=== PATIENT | male | born 1985 | race Caucasian/White ===

== ENCOUNTER 2017-04-27 08:23 | Day surgery (SDC) | payer OTHER ==
[2017-04-23 15:51] VITALS: BMI 26.9
[~2017-04-27 08:23] MED LIST: LEVOFLOXACIN 500 MG PREMIX BAG IVPB ONE
[2017-04-27] MEDS ORDERED: LEVOFLOXACIN 500 MG IVPB 500 MG/100 ML BAG IVPB ONE (09:24)
[2017-04-27] MEDS ORDERED: MIDAZOLAM HCL 2 MG/2 ML SINGLE DOSE VIAL ONE (09:25)
[2017-04-27] MEDS ORDERED: PROPOFOL 20 ML ONE ×2 (09:25)
[2017-04-27] MEDS ORDERED: LEVOFLOXACIN 500 MG PREMIX BAG IVPB ONE (09:36)
[2017-04-27] MEDS ORDERED: DEXAMETHASONE SOD PHOSPHATE 4 MG/1 ML VIAL ONE (09:52)
[2017-04-27] MEDS ORDERED: ONDANSETRON 4 MG/2 ML VIAL IVPUSH PRN (10:14)
[2017-04-27] MEDS ORDERED: oxyCODONE HCL 5 MG TABLET PO PRN (10:14)
[2017-04-27] MEDS ORDERED: LACTATED RINGERS SOLUTION 1,000 ML IV SCH (10:15)
[2017-04-27 11:54] VITALS: TEMP 97.8
--- NOTE | 2017-04-27 12:09 | OP ---
Operative Note - Note: Operative Date: 04/27/17 Pre-Operative Diagnosis: right ureterocele with one centimeter right ureteral stone Operation: cystoscopy/right retrograde pyelogram/right ureteroscopic laser lithotripsy/right ureteral stent placement Findings: one cm right distal ureteral stone Post-Operative Diagnosis: Same as Pre-op Surgeon: Tomas Nelson Anesthesia: General Specimens Removed: stone fragments Drains & Tubes with Location: 6 fr/24 cm right ureteral stent Operative Report Dictated: Yes
[2017-04-27] MEDS ORDERED: oxyCODONE HCL 5 MG TABLET ONE (12:15)
[2017-04-27] MEDS ORDERED: ONDANSETRON 4 MG/2 ML VIAL ONE (13:17)
[2017-04-27] MEDS ORDERED: IBUPROFEN 600 MG TABLET (FP) PO ONE (13:49)
[2017-04-27 15:04] VITALS: BP 137/78; PULSE 67
--- NOTE | 2017-04-27 18:57 | OP ---
DATE OF OPERATION: 04/27/2017 PREOPERATIVE DIAGNOSES: Right ureterocele with 1-cm distal right ureteral stone. POSTOPERATIVE DIAGNOSES: Right ureterocele with 1-cm distal right ureteral stone. PROCEDURE: Cystoscopy, right retrograde pyelogram, right ureteroscopic laser lithotripsy, right ureteral stone basketing, and right ureteral stent placement. ATTENDING: Reina Mccain MD ANESTHESIA: General. DESCRIPTION OF OPERATION: Patient was brought in the operating room, placed in a supine position on the operating room table. The patient was then administered general anesthesia and placed in the dorsal lithotomy position. Patient was prepped and draped in the usual sterile manner. Cystoscopy was performed, and the mass involving the right ureteral orifice was noted. This is consistent with an ureterocele seen on CAT scan. Difficulty was encountered in finding the ureteral orifice on the right. The right ureteral orifice was eventually intubated and a right stent placed proximally. A retrograde pyelogram was then performed which showed a large filling defect in the right ureterocele with [id number] right hydroureteronephrosis. At this point, the cystoscope was removed, and the wire was left in place. Ureteroscopy was performed. Under direct vision, a holmium laser fiber was utilized, and laser lithotripsy of the distal ureteral stone was performed. Excellent fragmentation of the stone was noted. All stone fragments were basketed and removed and sent to Pathology for evaluation. No complications were noted. A right ureteral stent was left in place, measuring 6-Azeri 24 cm. The Seldinger technique was utilized in placing the stent. It must be noted that there was no incision made to the right ureteral orifice. There is a possibility with the dilation caused by the 1-cm stone that the patient will suffer right ureteral reflux. This possibility had been told to the patient. The patient will be left with a stent and followed up in the office setting. The disposition of the patient is to recovery room. REINA MCCAIN M.D. [id number]
--- NOTE | 2017-04-28 13:38 | PATH ---
Surgical Pathology Report Patient Name: МАРИНА NOGUEIRA [facility]. Rec. #: [id number] /Age/Gender: 1985 (Age: 32) / M Account: [id number] Location: U SURGICAL Taken: 04/27/2017 Received: 04/27/2017 Reported: 04/28/2017 Physicians: Tomas Nelson Specimen(s) Received RIGHT URETERAL STONE Clinical History Right ureteral stone Final Diagnosis URETERAL STONE, RIGHT, REMOVAL: URETEROLITHIASIS. MACROSCOPIC DIAGNOSIS. SEE SEPARATE CHEMICAL ANALYSIS REPORT. Electronically Signed Yue Cintron M.D. Gross Description Received fresh labeled "right ureteral stone," is a 1.8 x 1.0 x 0.4 cm aggregate of boyd-brown, fragmented calculi. The specimen is sent for chemical analysis. DL/04/27/2017 saudi/04/27/2017
[2017-05-05 10:12] LABS: CA OXALATE MONOHYDR. 25 % (.); URIC ACID 70 % (.); WEIGHT 466.7 mg (.)
== END 2017-04-27 15:04 | disposition home or self-care (01) ==
LOC: JASU-SURG 08:23
PROVIDERS: ATTEND Urology
PROC: 0TF68ZZ Fragmentation in Right Ureter, Via Natural or Artificial Opening Endoscopic (ICD-10-PCS; principal; 2017-04-27 10:00)
PROC: 0T768DZ Dilation of Right Ureter with Intraluminal Device, Via Natural or Artificial Opening Endoscopic (ICD-10-PCS; 2017-04-27 10:00)
PROC: BT1DZZZ Fluoroscopy of Right Kidney, Ureter and Bladder (ICD-10-PCS; 2017-04-27 10:00)
DX: N20.1 Calculus of ureter (principal); N28.89 Other specified disorders of kidney and ureter
CPT/HCPCS: 36415; 76000-TC; 82360; 94760

== ENCOUNTER 2017-05-18 10:31 | Day surgery (SDC) | payer OTHER ==
[2017-05-14 15:10] VITALS: BMI 26.9
[2017-05-18] MEDS ORDERED: MIDAZOLAM HCL 2 MG/2 ML SINGLE DOSE VIAL ONE ×2 (13:32→13:36)
--- NOTE | 2017-05-18 14:05 | OP ---
Operative Note - Note: Operative Date: 05/18/17 Pre-Operative Diagnosis: Right flank pain, kidney stone, JJ stent Operation: Right ESWL Findings: Right lower pole 8 mm stone Post-Operative Diagnosis: Same as Pre-op Surgeon: Tomas Nelson Anesthesia: Fractional Drains & Tubes with Location: R JJ stent
[2017-05-18 14:12] VITALS: TEMP 97
[2017-05-18 14:58] VITALS: BP 125/81; PULSE 74
--- NOTE | 2017-05-18 20:30 | OP ---
DATE OF OPERATION: 05/18/2017 PREOPERATIVE DIAGNOSIS: Right renal stone. POSTOPERATIVE DIAGNOSIS: Right renal stone. PROCEDURE: Right extracorporeal shock wave lithotripsy. ATTENDING: Reina Mccain MD ANESTHESIA: General. DESCRIPTION OF OPERATION: Patient was brought in the operating room, placed in supine position, laid on the operating room table. Ultrasonography and fluoroscopy were performed. An 8-mm right lower-pole stone was identified. At this point, the anesthesia was administered to the patient, and the patient was given preoperative antibiotics. Extracorporeal shock wave lithotripsy was then started; 2500 impulses at 20 joules of power were administered to the stone. Excellent fragmentation of the stone was noted. There were no complications noted. The patient tolerated the procedure very well. The disposition of the patient was to the recovery room. REINA MCCAIN M.D. [id number]
== END 2017-05-18 14:55 | disposition home or self-care (01) ==
LOC: JASU-SURG 10:31
PROVIDERS: ATTEND Urology
PROC: 0TF3XZZ Fragmentation in Right Kidney Pelvis, External Approach (ICD-10-PCS; principal; 2017-05-18 11:45)
DX: N20.0 Calculus of kidney (principal)

== ENCOUNTER 2018-02-04 04:24 | Observation (INO) | payer OTHER ==
--- NOTE | 2018-02-04 04:35 | PDOC ---
History of Present Illness <Hue Joaquin - Last Filed: 02/04/18 07:00> - History of Present Illness Initial Comments: 02/04/18 04:34 Mr. Sahu is a 32 yo male w/ pmh of multiple instances of nephrolithiasis ( one requiring intervention for 7mm stone) who presents for evaluation of left sided abdominal/back pain he reports woke him from sleepin directly before presentation. Patient relates it currently "hurts everywhere" however localizes to the left side. He says this feels like his prior kidney stones. Endorses nausea and vomiting at home before presentation that consisted of food he had eaten earlier. He took Azo at home to help with the pain. The patient denies chest pain, shortness of breath, headache and dizziness. Denies fever, chills, diarrhea and constipation. Denies dysuria, frequency, urgency and hematuria. Allergies: NKDA <Herve Acosta - Last Filed: 02/04/18 07:06> - General Stated Complaint: PAIN LOWER BSCK Time Seen by Provider: 02/04/18 04:34 Past History <Hue Joaquin Gokulyordy - Last Filed: 02/04/18 07:00> - Past Medical History Anemia: No Asthma: No Cancer: No Cardiac Disorders: No CVA: No COPD: No CHF: No Dementia: No Diabetes: No GI Disorders: No Disorders: Yes (KIDNEY STONES) HTN: No Hypercholesterolemia: No Kidney Stones: Yes Liver Disease: No Seizures: No Thyroid Disease: No - Suicide/Smoking/Psychosocial Hx Smoking Status: No Smoking History: Never smoked Have you smoked in the past 12 months: No Number of Cigarettes Smoked Daily: 0 Hx Alcohol Use: No Drug/Substance Use Hx: No Substance Use Type: None <Herve Acosta - Last Filed: 02/04/18 07:06> - Past Medical History Allergies/Adverse Reactions: Allergies Allergy/AdvReac Type Severity Reaction Status Date / Time No Known Allergies Allergy Verified 02/04/18 06:17 Home Medications: Ambulatory Orders NK [No Known Home Medication] 04/23/17 Review of Systems - Review of Systems Comments:: 02/04/18 04:34 GENERAL/CONSTITUTIONAL: No fever or chills. No weakness. HEAD, EYES, EARS, NOSE AND THROAT: No change in vision. No ear pain or discharge. No sore throat. CARDIOVASCULAR: No chest pain or shortness of breath RESPIRATORY: No cough, wheezing, or hemoptysis. GASTROINTESTINAL: +LLQ pain w/ nausea/vomiting as described. No diarrhea or constipation. GENITOURINARY: No dysuria, frequency, or change in urination. MUSCULOSKELETAL: +Left lower back pain. No joint or muscle swelling or pain. No neck pain. SKIN: No rash NEUROLOGIC: No headache, vertigo, loss of consciousness, or change in strength/ sensation. ENDOCRINE: No increased thirst. No abnormal weight change HEMATOLOGIC/LYMPHATIC: No anemia, easy bleeding, or history of blood clots. ALLERGIC/IMMUNOLOGIC: No hives or skin allergy. <Herve Acosta - Last Filed: 02/04/18 07:06> *Physical Exam - Vital Signs Last Vital Signs Temp Pulse Resp BP Pulse Ox 98.4 F 66 18 120/71 99 02/04/18 06:49 02/04/18 06:49 02/04/18 06:49 02/04/18 06:49 02/04/18 06:49 <Hue Joaquin - Last Filed: 02/04/18 07:00> - Physical Exam Comments: 02/04/18 04:34 GENERAL: +Patient appears acutely in pain. Awake, alert, and fully oriented HEAD: No signs of trauma, normocephalic, atraumatic EYES: PERRLA, EOMI, sclera anicteric, conjunctiva clear ENT: Auricles normal inspection, hearing grossly normal, nares patent, oropharynx clear without exudates. Moist mucosa NECK: Normal ROM, supple, no lymphadenopathy, JVD, or masses LUNGS: No distress, speaks full sentences, clear to auscultation bilaterally HEART: Regular rate and rhythm, normal S1 and S2, no murmurs, rubs or gallops, peripheral pulses normal and equal bilaterally. ABDOMEN: +LLQ/LUQ TTP. Left CVA TTP. Soft, normoactive bowel sounds. No guarding , no rebound. No masses EXTREMITIES: Normal inspection, Normal range of motion, no edema. No clubbing or cyanosis. NEUROLOGICAL: Cranial nerves II through XII grossly intact. Normal speech, normal gait, no focal sensorimotor deficits SKIN: Warm, Dry, normal turgor, no rashes or lesions noted. <Herev Acosta - Last Filed: 02/04/18 07:06> ED Treatment Course - LABORATORY CBC & Chemistry Diagram: 02/04/18 04:50 02/04/18 04:50 - ADDITIONAL ORDERS Additional order review: Laboratory Results 02/04/18 02/04/18 02/04/18 06:02 04:50 04:50 WBC 6.6 RBC 5.71 H Hgb 15.2 Hct 47.5 MCV 83.2 MCH 26.7 MCHC 32.0 RDW 13.1 Plt Count 191 MPV 7.6 Absolute Neuts (auto) 3.9 Neutrophils % 58.7 Lymphocytes % 30.9 D Monocytes % 8.8 Eosinophils % 1.2 D Basophils % 0.4 Nucleated RBC % 0 Sodium 138 Potassium 3.3 L Chloride 102 Carbon Dioxide 26 Anion Gap 10 BUN 15 Creatinine 1.1 Creat Clearance w eGFR > 60 Random Glucose 103 Calcium 8.6 Total Bilirubin 0.4 AST 16 ALT 30 Alkaline Phosphatase 77 Total Protein 7.6 Albumin 4.0 Urine Color Zayra Urine Appearance Clear Urine pH 5.0 Ur Specific [place] 1.021 Urine Protein Negative Urine Glucose (UA) Negative Urine Ketones Negative Urine Blood 3+ H Urine Nitrite Positive Urine Bilirubin Negative Urine Urobilinogen 4.0 e.u/dl Ur Leukocyte Esterase Negative Urine WBC (Auto) 1 Urine RBC (Auto) 113 Urine Mucus Rare 02/04/18 04:50 RBC 5.71 H MCV 83.2 MCHC 32.0 RDW 13.1 MPV 7.6 Neutrophils % 58.7 Lymphocytes % 30.9 D Monocytes % 8.8 Eosinophils % 1.2 D Basophils % 0.4 - Medications Given in the ED: ED Medications Discontinued Medications Generic Name Dose Route Start Last Admin Trade Name Freq PRN Reason Stop Dose Admin Sodium Chloride 1,000 mls @ 1,000 mls/hr 02/04/18 04:39 02/04/18 05:17 Normal Saline - IV 02/04/18 05:38 1,000 mls/hr ASDIR STA Administration Ketorolac Tromethamine 30 mg 02/04/18 04:39 02/04/18 05:18 Toradol Injection - IVPUSH 02/04/18 04:40 30 mg ONCE ONE Administration Morphine Sulfate 4 mg 02/04/18 04:39 02/04/18 05:17 Morphine Injection - IVPUSH 02/04/18 04:40 4 mg ONCE ONE Administration Ondansetron HCl 4 mg 02/04/18 04:54 02/04/18 05:18 Zofran Injection IVPUSH 02/04/18 04:55 4 mg ONCE ONE Administration Potassium Chloride 40 meq 02/04/18 05:58 02/04/18 06:14 K-Dur - PO 02/04/18 05:59 40 meq ONCE ONE Administration <Hue Joaquin - Last Filed: 02/04/18 07:00> - LABORATORY CBC & Chemistry Diagram: 02/04/18 04:50 02/04/18 04:50 <Herve Acosta - Last Filed: 02/04/18 07:06> Medical Decision Making - Medical Decision Making 02/04/18 04:57 Mr. Sahu is a 32 yo male w/ pmh as described who presents for evaluation of symptoms c/w nephrolithiasis / ureterolithiasis. Workup started with basic labs for evaluation and pain medication. CT spiral ordered for further evaluation. 02/04/18 05:25 Renal calculi w/ mild left sided hydronephrosis noted on bedside US. 02/04/18 07:05 Patient signed out to Dr. Lindsey for further care. <Herve Acosta - Last Filed: 02/04/18 07:06> *DC/Admit/Observation/Transfer - Discharge Dispostion Decision to Admit order: Yes Decision to Admit order Date/Time: Decision to Admit Order Category Date Time Status Decision to Admit to Hospital Routine Admission 02/04/18 06:57 Ordered <Hue Joaquin - Last Filed: 02/04/18 07:00> - Discharge Dispostion Decision to Admit order: Yes <Herve Acosta - Last Filed: 02/04/18 07:06> Diagnosis at time of Disposition: Renal calculus, left - Discharge Dispostion Condition at time of disposition: Fair
[2018-02-04] MEDS ORDERED: KETOROLAC TROMETHAMINE 30 MG/1 ML VIAL IVPUSH ONE (04:39)
[2018-02-04] MEDS ORDERED: morphine CARPU-JECT 4 MG/1 ML DISP.SYRIN IVPUSH ONE (04:39)
[2018-02-04] MEDS ORDERED: SODIUM CHLORIDE 1,000 ML IV STA (04:39)
[2018-02-04 04:49] VITALS: BMI 29.0
[2018-02-04] MEDS ORDERED: ONDANSETRON 4 MG/2 ML VIAL IVPUSH ONE (04:54)
[2018-02-04] MEDS ORDERED: morphine SULFATE 4 MG/ML VIAL ONE (05:02)
[2018-02-04] MEDS ORDERED: KETOROLAC TROMETHAMINE 30 MG/1 ML VIAL ONE (05:03)
[2018-02-04 05:04] LABS: BASO % 0.4 % (0-2.0); EOS % 1.2 % (0-4.5); HEMATOCRIT 47.5 % (35.4-49); HEMOGLOBIN 15.2 GM/dL (11.7-16.9); LYMPH % 30.9 % (8-40); MCH 26.7 pg (25.7-33.7); MEAN CELL VOLUME 83.2 fl (80-96); MEAN PLT VOLUME 7.6 fl (7.5-11.1); MONO % 8.8 % (3.8-10.2); NEUT % 58.7 % (42.8-82.8); PLATELET COUNT 191 K/MM3 (134-434); RBC 5.71 M/mm3 (4.00-5.60); RDW 13.1 % (11.9-15.9); WHITE BLOOD COUNT 6.6 K/mm3 (4.0-10.0)
[2018-02-04] MEDS ORDERED: ONDANSETRON 4 MG/2 ML VIAL ONE (05:04)
--- NOTE | 2018-02-04 05:15 | PDOC ---
Attending Attestation - Resident Resident Name: HarleyteddydeniseKalebHerve - ED Attending Attestation I have performed the following: I have examined & evaluated the patient, The case was reviewed & discussed with the resident, I agree w/resident's findings & plan - HPI HPI: 02/04/18 06:00 Mr. Sahu is a 32 yo male w/ pmh of multiple instances of kidney stones (one requiring intervention for 7mm stone) presenting with acute onset of left flank and abdominal pain, n/v that woke him up from sleep this morning. No f/c. Feels similar to prior stones. - Physicial Exam PE: 02/04/18 06:00 Mild distress 2/2 pain, colicky, PERRL, EOMI, MMM, nl conjunctiva, anicteric; neck supple. lungs clear, RRR, abdomen soft +left flank and LLQ tenderness. HERNÁNDEZ x4, no focal neuro deficits. No peripheral edema. normal color for ethnicity, WWP. - Medical Decision Making 02/04/18 06:00 32 YOM with h/o multiple kidney stones (once requiring lithotripsy) presenting with acute onset left flank and AP. DDx abdominal pain: Renal colic, biliary colic, metabolic/electrolyte derangements. GERD, PUD, esophageal spasm, pancreatitis, hepatitis, constipation , colitis, gastroenteritis, cholecystitis, UTI, pyelonephritis, ileus, SBO, medication side effect, hernia, appendicitis, diverticulitis Vital signs reviewed, wnl. Prior notes reviewed, including admissions, discharges and consultations. laboratory results and imaging reviewed, basic labs and lytes wnl, mild hypoK, given PO tab for repletion. UA_ positive for nitrites and copious blood, possibly an infection, f/u urine cultures. ED course: no acute events, remained stable and well appearing. Clinically improved after interventions, including morphine, toradol, zofran and IVF. POCUS renal: Bilateral kidneys scanned in both longitudinal and transverse planes using low frequency probe. +left sided mild hydronephrosis noted, empty bladder. CT sofi obtained to r/o large stone given prior complication and predisposition and urologic intervention. CT revealed 3.2cm obstructed stone in left UVJ with upstream hydronephrosis. Urology cs, admit for abx, obstructed stone with s/s early infection, hydration and pain control. dx. infected obstructed ureteral stone. 02/06/18 09:10 Procedures - Bedside Ultrasound Remarks: 02/04/18 06:11 POCUS renal exam performed, indication includes abdominal/flank pain. views obtained: bilateral kidneys in short and long axis, bladder. findings: left mild hydronephrosis, empty bladder. Impression: left hydronephrosis.
[2018-02-04 05:29] LABS: ALK PHOS 77 U/L (45-117); ANION GAP 10 MMOL/L (8-16); BILIRUBIN,TOTAL 0.4 mg/dL (0.2-1); BLOOD UREA NITROGEN 15 mg/dL (7-18); CALCIUM 8.6 mg/dL (8.5-10.1); CHLORIDE 102 mmol/L (98-107); CO2 26 mmol/L (21-32); CREATININE 1.1 mg/dL (0.55-1.3); GLUCOSE,RANDOM 103 mg/dL (74-106); POTASSIUM 3.3 mmol/L (3.5-5.1); SGOT/AST 16 U/L (15-37); SGPT/ALT 30 U/L (13-61); SODIUM 138 mmol/L (136-145); TOT PROT 7.6 g/dl (6.4-8.2)
[2018-02-04] MEDS ORDERED: POTASSIUM CHLORIDE TABS 20 MEQ TABLET.ER (FP) PO ONE ×2 (05:58→06:12)
[2018-02-04 06:13] LABS: URINE APPEARANCE CLEAR; URINE BILIRUBIN NEGATIVE (<2.0 mg/dL); URINE COLOR AMBER; URINE GLUCOSE (UA) NEGATIVE (NEGATIVE); URINE KETONE NEGATIVE (NEGATIVE); URINE LEUK ESTERASE NEGATIVE (NEGATIVE); URINE NITRITE POSITIVE (NEGATIVE); URINE PROTEIN NEGATIVE (NEGATIVE); URINE UROBILINOGEN 4.0 E.U/dl mg/dL (0.2-1.0)
[2018-02-04 06:22] LABS: URINE MUCUS RARE
[2018-02-04] MEDS ORDERED: CEFTRIAXONE 1,000 MG in DEXTROSE 5%-WATER - 50 ML IVPB ONE (06:55)
--- NOTE | 2018-02-04 07:13 | PDOC ---
*Physical Exam - Vital Signs Last Vital Signs Temp Pulse Resp BP Pulse Ox 98.4 F 66 18 120/71 99 02/04/18 06:49 02/04/18 06:49 02/04/18 06:49 02/04/18 06:49 02/04/18 06:49 ED Treatment Course - LABORATORY CBC & Chemistry Diagram: 02/04/18 04:50 02/04/18 04:50 - ADDITIONAL ORDERS Additional order review: Laboratory Results 02/04/18 02/04/18 06:02 04:50 Sodium 138 Potassium 3.3 L Chloride 102 Carbon Dioxide 26 Anion Gap 10 BUN 15 Creatinine 1.1 Creat Clearance w eGFR > 60 Random Glucose 103 Calcium 8.6 Total Bilirubin 0.4 AST 16 ALT 30 Alkaline Phosphatase 77 Total Protein 7.6 Albumin 4.0 Urine Color Zayra Urine Appearance Clear Urine pH 5.0 Ur Specific [place] 1.021 Urine Protein Negative Urine Glucose (UA) Negative Urine Ketones Negative Urine Blood 3+ H Urine Nitrite Positive Urine Bilirubin Negative Urine Urobilinogen 4.0 e.u/dl Ur Leukocyte Esterase Negative Urine WBC (Auto) 1 Urine RBC (Auto) 113 Urine Mucus Rare 02/04/18 04:50 RBC 5.71 H MCV 83.2 MCHC 32.0 RDW 13.1 MPV 7.6 Neutrophils % 58.7 Lymphocytes % 30.9 D Monocytes % 8.8 Eosinophils % 1.2 D Basophils % 0.4 - Medications Given in the ED: ED Medications Discontinued Medications Generic Name Dose Route Start Last Admin Trade Name Freq PRN Reason Stop Dose Admin Sodium Chloride 1,000 mls @ 1,000 mls/hr 02/04/18 04:39 02/04/18 05:17 Normal Saline - IV 02/04/18 05:38 1,000 mls/hr ASDIR STA Administration Ketorolac Tromethamine 30 mg 02/04/18 04:39 02/04/18 05:18 Toradol Injection - IVPUSH 02/04/18 04:40 30 mg ONCE ONE Administration Morphine Sulfate 4 mg 02/04/18 04:39 02/04/18 05:17 Morphine Injection - IVPUSH 02/04/18 04:40 4 mg ONCE ONE Administration Ondansetron HCl 4 mg 02/04/18 04:54 02/04/18 05:18 Zofran Injection IVPUSH 02/04/18 04:55 4 mg ONCE ONE Administration Potassium Chloride 40 meq 02/04/18 05:58 02/04/18 06:14 K-Dur - PO 02/04/18 05:59 40 meq ONCE ONE Administration Medical Decision Making - Medical Decision Making 32yo M with PMH of nephrolithiasis presenting with flank pain. CT "positive for 3.2 mm obstructing distal left ureteral stone at the left ureterovesicular junction. This causes mild to moderate left hydronephrosis/hydroureter." UA positive for nitrites. No fevers, chills; WBC=6.6. Plan to admit for infectious obstructive nephrolithiasis. Ceftriaxone 1g ordered. Discussed case with Dr. Alarcon, urologist, who agreed with our plan and will evaluate the patient. Patient made NPO 02/04/18 08:[address] Diallo who accepted patient for admission under attending, Dr. Breaux Patient reports sufficient pain control. 02/04/18 09:40 *DC/Admit/Observation/Transfer Diagnosis at time of Disposition: Renal calculus, left - Discharge Dispostion Condition at time of disposition: Fair - Referrals - Patient Instructions - Post Discharge Activity
[2018-02-04] MEDS ORDERED: CEFTRIAXONE 1 GM/50 ML BAG ONE (07:19)
--- NOTE | 2018-02-04 09:09 | CON.GU ---
Consult Consult Specialty:: Urology Referred by:: ED Reason for Consultation:: left flank pain nausea - History of Present Illness Chief Complaint: left flank pain History of Present Illness: 2 days flank pain no resolved Prior testicular pain resolved CT c/w passed stone - Alcohol/Substance Use Hx Alcohol Use: No - Smoking History Smoking history: Never smoked Have you smoked in the past 12 months: No Aproximately how many cigarettes per day: 0 Home Medications - Allergies Allergies/Adverse Reactions: Allergies Allergy/AdvReac Type Severity Reaction Status Date / Time No Known Allergies Allergy Verified 02/04/18 06:17 - Home Medications Home Medications: Ambulatory Orders NK [No Known Home Medication] 04/23/17 Physical Exam- Vital Signs: Vital Signs Temperature 98.0 F 02/04/18 07:33 Pulse Rate 67 02/04/18 07:33 Respiratory Rate 17 02/04/18 07:33 Blood Pressure 131/75 02/04/18 07:33 O2 Sat by Pulse Oximetry (%) 99 02/04/18 07:33 Labs: CBC, BMP 02/04/18 04:50 02/04/18 04:50 Imaging - Results Cat Scan: Report Reviewed Problem List - Problems (1) Renal calculus, left Assessment/Plan: Left ureteral stone passed Doing well finish abx Reconsult if pain returns office info given to pt Code(s): N20.0 - CALCULUS OF KIDNEY
[2018-02-04] MEDS ORDERED: morphine SULFATE 4 MG/ML VIAL IVPUSH PRN (11:37)
--- NOTE | 2018-02-04 11:43 | HP ---
Admitting History and Physical - Admission Chief Complaint: left sided flank pain History of Present Illness: Mr. Sahu is a 32 yo male w/ pmh of multiple instances of kidney stones (one requiring intervention for 7mm stone) presenting with acute onset of left flank and abdominal pain, n/v that woke him up from sleep this morning. No f/c. Feels similar to prior stones. per patient he felttesticular pain and flank pain which woke him up last night.no fever no chills no hematuria, in ER got ivf,morphine, iv abx CT scan shows passed stone History Source: Patient - Past Medical History Renal/: Yes: Renal Calculi - Smoking History Smoking history: Never smoked Have you smoked in the past 12 months: No Aproximately how many cigarettes per day: 0 - Alcohol/Substance Use Hx Alcohol Use: No Home Medications - Allergies Allergies/Adverse Reactions: Allergies Allergy/AdvReac Type Severity Reaction Status Date / Time No Known Allergies Allergy Verified 02/04/18 06:17 - Home Medications Home Medications: Ambulatory Orders NK [No Known Home Medication] 04/23/17 Review of Systems - Review of Systems Respiratory: reports: No Symptoms Gastrointestinal: reports: No Symptoms Genitourinary: reports: No Symptoms Physical Examination Vital Signs: Vital Signs Temperature 98.0 F 02/04/18 09:00 Pulse Rate 67 02/04/18 09:00 Respiratory Rate 17 02/04/18 09:00 Blood Pressure 131/75 02/04/18 09:00 O2 Sat by Pulse Oximetry (%) 99 02/04/18 09:34 currently he is pain free on ivf no fever no wbc count no hematuria no dysuria no testicular pain Constitutional: Yes: Calm Cardiovascular: Yes: Regular Rate and Rhythm, S1, S2 Respiratory: Yes: CTA Bilaterally Gastrointestinal: Yes: Normal Bowel Sounds, Soft, Other (midline incision) Edema: No Neurological: Yes: Alert, Oriented Labs: CBC, BMP 02/04/18 04:50 02/04/18 04:50 Imaging - Results Cat Scan: Report Reviewed (3mm calculus in urinary in bladder) Problem List - Problems (1) Renal colic on left side Assessment/Plan: appreicate urology consult-ct scan shows passed stone will change to po abx and discharge home Code(s): N23 - UNSPECIFIED RENAL COLIC
[2018-02-04] MEDS ORDERED: DEXTROSE 5%-0.45% SALINE 1,000 ML IV SCH (11:45)
--- NOTE | 2018-02-04 11:55 | DS ---
Physical Examination Vital Signs: Vital Signs Temperature 98.0 F 02/04/18 09:00 Pulse Rate 67 02/04/18 09:00 Respiratory Rate 17 02/04/18 09:00 Blood Pressure 131/75 02/04/18 09:00 O2 Sat by Pulse Oximetry (%) 99 02/04/18 09:34 Constitutional: Yes: Calm Cardiovascular: Yes: Regular Rate and Rhythm, S1, S2 Respiratory: Yes: CTA Bilaterally Gastrointestinal: Yes: Normal Bowel Sounds, Soft Edema: No Neurological: Yes: Alert, Oriented Labs: CBC, BMP 02/04/18 04:50 02/04/18 04:50 Discharge Summary Reason For Visit: RENAL COLIC ON LEFT SIDE, CALCULUS OF KIDNEY Current Active Problems Renal calculus, left (Acute) Hospital Course: Admission Chief Complaint: left sided flank pain History of Present Illness: Mr. Sahu is a 32 yo male w/ pmh of multiple instances of kidney stones (one requiring intervention for 7mm stone) presenting with acute onset of left flank and abdominal pain, n/v that woke him up from sleep this morning. No f/c. Feels similar to prior stones. per patient he felttesticular pain and flank pain which woke him up last night.no fever no chills no hematuria, in ER got ivf,morphine, iv abx CT scan shows passed stone plan to discharge patient home on po bax for 5 days and folow up with urology Condition: Fair - Instructions Disposition: HOME - Home Medications Comprehensive Discharge Medication List: Ambulatory Orders Cephalexin Monohydrate [Keflex -] 500 mg PO BID #10 capsule MDD 2 02/04/18
[2018-02-04] MEDS ORDERED: SODIUM CHLORIDE 1,000 ML IV SCH (12:00)
[2018-02-04 14:06] VITALS: TEMP 98.4
[2018-02-04 15:04] VITALS: BP 135/71; PULSE 72
== END 2018-02-04 15:32 | disposition home or self-care (01) ==
LOC: JER 04:24 → UNDOADMOB 06:57 → JERBED 06:57 → INTOOBSV 06:57 → JERBED 10:24 → J8W 10:24 → JERBED 11:36
PROVIDERS: ADMIT Family Medicine; ATTEND Family Medicine
PROC: 3E03329 Introduction of Other Anti-infective into Peripheral Vein, Percutaneous Approach (ICD-10-PCS; principal; 2018-02-04)
PROC: 3E0333Z Introduction of Anti-inflammatory into Peripheral Vein, Percutaneous Approach (ICD-10-PCS; 2018-02-04)
PROC: 3E033NZ Introduction of Analgesics, Hypnotics, Sedatives into Peripheral Vein, Percutaneous Approach (ICD-10-PCS; 2018-02-04)
PROC: 3E033GC Introduction of Other Therapeutic Substance into Peripheral Vein, Percutaneous Approach (ICD-10-PCS; 2018-02-04)
PROC: 3E0337Z Introduction of Electrolytic and Water Balance Substance into Peripheral Vein, Percutaneous Approach (ICD-10-PCS; 2018-02-04)
DX: N20.0 Calculus of kidney (principal); Z87.442 Personal history of urinary calculi
CPT/HCPCS: 36415; 74176; 80053; 81003; 81015; 85025; 87086; 96361; 96365; 96375; 99283-25; G0378; J7030

== ENCOUNTER 2020-10-13 01:46 | Emergency (ER) | payer OTHER ==
[2020-10-13 01:51] VITALS: TEMP 98.2; BMI 25.7
[2020-10-13] MEDS ORDERED: SODIUM CHLORIDE 1,000 ML IV STA (03:06)
[2020-10-13 03:44] LABS: BASO % 0.5 % (0-2.0); EOS % 0.4 % (0-4.5); HEMATOCRIT 44.7 % (35.4-49); HEMOGLOBIN 14.9 GM/dL (11.7-16.9); LYMPH % 13.9 % (8-40); MCH 27.6 pg (25.7-33.7); MCHC 33.3 g/dl (32.0-35.9); MEAN CELL VOLUME 82.9 fl (80-96); MEAN PLT VOLUME 7.1 fl (7.5-11.1); MONO % 6.8 % (3.8-10.2); NEUT % 78.4 % (42.8-82.8); PLATELET COUNT 188 10^3/uL (134-434); RBC 5.39 M/mm3 (4.00-5.60); RDW 13.5 % (11.9-15.9)
[2020-10-13 04:05] LABS: CHLORIDE 105 mmol/L (98-107); SODIUM 138 mmol/L (136-145)
[2020-10-13 04:07] LABS: CALCIUM 8.5 mg/dL (8.5-10.1)
[2020-10-13 04:08] LABS: ALBUMIN 3.7 g/dl (3.4-5.0); ANION GAP 7 MMOL/L (8-16); BLOOD UREA NITROGEN 14.6 mg/dL (7-18); CO2 27 mmol/L (21-32); GLUCOSE,RANDOM 100 mg/dL (74-106)
[2020-10-13 04:11] LABS: CREATININE 1.1 mg/dL (0.55-1.3); SGOT/AST 18 U/L (15-37); SGPT/ALT 40 U/L (13-61)
[2020-10-13 04:12] LABS: BILIRUBIN,TOTAL 0.5 mg/dL (0.2-1); TOT PROT 7.4 g/dl (6.4-8.2)
[2020-10-13 04:14] LABS: ALK PHOS 65 U/L (45-117)
[2020-10-13 06:07] VITALS: BP 143/86; PULSE 79
== END 2020-10-13 05:58 | disposition home or self-care (01) ==
LOC: JER 01:46
PROC: 3E0337Z Introduction of Electrolytic and Water Balance Substance into Peripheral Vein, Percutaneous Approach (ICD-10-PCS; principal; 2020-10-13)
DX: R55 Syncope and collapse (principal)
CPT/HCPCS: 36415; 70450-TC; 80053; 82550; 82553; 84484; 85025; 93005; 93010; 99284-25

== ENCOUNTER 2020-11-27 21:46 | Emergency (ER) | payer OTHER ==
[2020-11-27 22:26] VITALS: BP 133/87; PULSE 75; TEMP 98.3; BMI 29.7
[2020-11-27] MEDS ORDERED: ETOMIDATE 20 MG/10 ML AMPUL IVPUSH ONE (23:48)
[2020-11-27] MEDS ORDERED: RAPID SEQUENCE INTUBATION KIT NR ONE (23:49)
[2020-11-27 23:58] LABS: EPI CELLS 1 /uL (0-25.1); HYALINE CASTS 0 /uL (0-3.1); PH,URINE 5.5 (5.0-8.0); URINE APPEARANCE CLEAR; URINE BACTERIA 7 /uL (0-1359); URINE BILIRUBIN NEGATIVE (NEGATIVE); URINE COLOR YELLOW; URINE GLUCOSE (UA) NEGATIVE (NEGATIVE); URINE KETONE NEGATIVE (NEGATIVE); URINE LEUK ESTERASE NEGATIVE (NEGATIVE); URINE NITRITE NEGATIVE (NEGATIVE); URINE PROTEIN NEGATIVE (NEGATIVE); URINE RBC 19 /uL (0-23.9); URINE UROBILINOGEN 0.2 mg/dL (0.2-1.0); URINE WBC 5 /uL (0-25.8)
== END 2020-11-28 01:59 | disposition home or self-care (01) ==
LOC: JER 21:46
DX: N50.812 Left testicular pain (principal)
CPT/HCPCS: 36415; 76775-TC; 76870-TC; 81003; 87086; 87491; 87591; 87661; 99284-25

== ENCOUNTER 2022-09-25 08:40 | Emergency (ER) | payer OTHER ==
[2022-09-25 08:49] VITALS: BP 143/85; PULSE 105; RESP 18; TEMP 99.4; BMI 30.5
[2022-09-25] MEDS ORDERED: DEXAMETHASONE SOD PHOSPHATE 10 MG/1 ML VIAL IM ONE (09:05)
[2022-09-25] MEDS ORDERED: ONDANSETRON *ODT* 4 MG TABLET SL ONE (09:05)
[2022-09-25] MEDS ORDERED: DEXAMETHASONE SOD PHOSPHATE 10 MG/1 ML VIAL ONE (09:14)
[2022-09-25] MEDS ORDERED: ONDANSETRON *ODT* 4 MG TABLET ONE (09:17)
[2022-09-25] MEDS ORDERED: PENICILLIN G BENZATHINE 1,200,000 UNIT/2 ML PFS IM ONE ×2 (09:57→10:37)
== END 2022-09-25 10:54 | disposition home or self-care (01) ==
LOC: JERFT 08:40 → JER 08:40 → JERFT 10:54
PROC: 3E023GC Introduction of Other Therapeutic Substance into Muscle, Percutaneous Approach (ICD-10-PCS; principal; 2022-09-25)
PROC: 3E02329 Introduction of Other Anti-infective into Muscle, Percutaneous Approach (ICD-10-PCS; 2022-09-25)
DX: R07.0 Pain in throat (principal); R50.9 Fever, unspecified; M79.10 Myalgia, unspecified site; R11.2 Nausea with vomiting, unspecified; J02.0 Streptococcal pharyngitis
CPT/HCPCS: 87651; 99284-25; J1100; Q0162

== ENCOUNTER 2024-08-06 10:24 | Emergency (ER) | payer OTHER ==
[2024-08-06 10:30] VITALS: BP 139/93; PULSE 92; RESP 20; TEMP 98.6; BMI 29.5
[2024-08-06] MEDS ORDERED: LORATADINE 10 MG TABLET ONE (11:02)
[2024-08-06] MEDS ORDERED: DEXAMETHASONE 4 MG TABLET (FP) ONE (11:03)
[2024-08-06] MEDS ORDERED: ALBUTEROL SO4 2.5/IPRATROPIUM 0.5 INH SOL 3 ML VIAL.NEB. NEB ONE ×2 (11:03→11:50)
[2024-08-06] MEDS: LORATADINE 10 MG TABLET PO ONE (11:08)
[2024-08-06] MEDS: ALBUTEROL SO4 2.5/IPRATROPIUM 0.5 INH SOL 3 ML VIAL.NEB. NEB ONE ×2 (11:08→11:51)
[2024-08-06] MEDS: DEXAMETHASONE SOD PHOSPHATE 10 MG/1 ML VIAL PO ONE (11:08)
== END 2024-08-06 12:43 | disposition home or self-care (01) ==
LOC: JERFT 10:24
PROC: 3E0F7GC Introduction of Other Therapeutic Substance into Respiratory Tract, Via Natural or Artificial Opening (ICD-10-PCS; principal; 2024-08-06)
PROC: 3E0F7GC Introduction of Other Therapeutic Substance into Respiratory Tract, Via Natural or Artificial Opening (ICD-10-PCS; 2024-08-06)
DX: J45.901 Unspecified asthma with (acute) exacerbation (principal); R05.9 Cough, unspecified; R06.02 Shortness of breath; R09.81 Nasal congestion
CPT/HCPCS: 99283-25; J1100